=== PATIENT | female | born 1960 | race Caucasian/White ===

== ENCOUNTER 2018-04-15 13:37 | Outpatient (CLI) | payer OTHER | END 2018-04-15 13:45 | disposition home or self-care (01) | LOC: MAMO-SONO 13:37 | DX: Z12.31 Encounter for screening mammogram for malignant neoplasm of breast (principal); N60.11 Diffuse cystic mastopathy of right breast; N60.12 Diffuse cystic mastopathy of left breast ==

== ENCOUNTER 2019-02-05 14:45 | Outpatient (CLI) | payer OTHER ==
[~2019-02-05 14:45] MED LIST: EFFEXOR25 MG; LEXAPRO20 MG; MEDROL4 MG PO; PROTONIX40 MG; SOMA; TYLENOL WITH CODEINE; WELCHOL625 MG; WELLBUTRIN75 MG; ZITHROMAX500 MG; ZYRTEC10 MG PO
== END 2019-02-05 14:48 | disposition home or self-care (01) ==
LOC: RAD 14:45
DX: M54.2 Cervicalgia (principal); M16.11 Unilateral primary osteoarthritis, right hip; M17.11 Unilateral primary osteoarthritis, right knee; M17.12 Unilateral primary osteoarthritis, left knee

== ENCOUNTER 2019-03-24 08:19 | Outpatient (CLI) | payer OTHER | END 2019-03-24 08:27 | disposition home or self-care (01) | LOC: RAD 08:19 → MAMO-SONO 08:45 | DX: J01.10 Acute frontal sinusitis, unspecified (principal); R94.5 Abnormal results of liver function studies ==

== ENCOUNTER 2020-09-08 13:09 | Outpatient (CLI) | payer OTHER | END 2020-09-08 13:13 | disposition home or self-care (01) | LOC: RAD 13:09 | PROVIDERS: ATTEND Physical Medicine & Rehabilitation | DX: M25.521 Pain in right elbow (principal); M77.11 Lateral epicondylitis, right elbow ==

== ENCOUNTER → 2021-04-23 | Outpatient (CLI) | payer OTHER | END | disposition home or self-care (01) | LOC: MAMO-SONO 13:29 | PROVIDERS: ATTEND Family Medicine | DX: M16.11 Unilateral primary osteoarthritis, right hip (principal); M16.2 Bilateral osteoarthritis resulting from hip dysplasia; M17.0 Bilateral primary osteoarthritis of knee ==

== ENCOUNTER 2021-05-04 14:19 | Outpatient (CLI) | payer OTHER | END 2021-05-04 14:26 | disposition home or self-care (01) | LOC: NUCLEAR 14:19 | PROVIDERS: ATTEND Internal Medicine Rheumatology | DX: M81.0 Age-related osteoporosis without current pathological fracture (principal) ==

== ENCOUNTER 2021-05-04 15:08 | Outpatient (CLI) | payer OTHER | END 2021-05-04 15:09 | disposition home or self-care (01) | LOC: LAB 15:08 | PROVIDERS: ATTEND Internal Medicine Rheumatology | DX: M05.79 Rheumatoid arthritis with rheumatoid factor of multiple sites without organ or systems involvement (principal); I25.10 Atherosclerotic heart disease of native coronary artery without angina pectoris ==

== ENCOUNTER 2022-03-14 15:47 | Outpatient (CLI) | payer OTHER | END 2022-03-14 15:57 | disposition home or self-care (01) | LOC: RAD 15:47 | PROVIDERS: ATTEND Physical Medicine & Rehabilitation | DX: M17.11 Unilateral primary osteoarthritis, right knee (principal); M17.12 Unilateral primary osteoarthritis, left knee; S93.402A Sprain of unspecified ligament of left ankle, initial encounter; M54.50 Low back pain, unspecified ==

== ENCOUNTER 2022-05-29 13:34 | Outpatient (CLI) | payer OTHER | END 2022-05-29 13:53 | disposition home or self-care (01) | LOC: RAD 13:34 | PROVIDERS: ATTEND Family Medicine | DX: R05.1 Acute cough (principal) ==

== ENCOUNTER 2022-11-06 13:40 | Outpatient (CLI) | payer OTHER | END 2022-11-06 13:49 | disposition home or self-care (01) | LOC: RAD 13:40 | PROVIDERS: ATTEND Family Medicine | DX: R05.8 Other specified cough (principal); R50.9 Fever, unspecified ==

== ENCOUNTER 2022-12-27 07:48 | Outpatient (CLI) | payer OTHER | END 2022-12-27 08:22 | disposition home or self-care (01) | LOC: SONOGRAMA 07:48 | PROVIDERS: ATTEND Family Medicine | DX: R94.8 Abnormal results of function studies of other organs and systems (principal); R74.02 Elevation of levels of lactic acid dehydrogenase [LDH] ==

== ENCOUNTER 2023-04-18 14:24 | Outpatient (CLI) | payer OTHER | END 2023-04-18 14:31 | disposition home or self-care (01) | LOC: RAD 14:24 | PROVIDERS: ATTEND Physical Medicine & Rehabilitation | DX: M54.2 Cervicalgia (principal); M54.6 Pain in thoracic spine ==

== ENCOUNTER → 2024-02-04 13:38 | Outpatient (CLI) | payer OTHER | END | disposition home or self-care (01) | LOC: NUCLEAR 13:38 | PROVIDERS: ATTEND Family Medicine | DX: M85.80 Other specified disorders of bone density and structure, unspecified site (principal); M81.0 Age-related osteoporosis without current pathological fracture ==

== ENCOUNTER → 2024-06-30 15:54 | Outpatient (CLI) | payer OTHER | END | disposition home or self-care (01) | LOC: RAD 15:54 | PROVIDERS: ATTEND Physical Medicine & Rehabilitation | DX: M25.512 Pain in left shoulder (principal); M25.562 Pain in left knee; M25.522 Pain in left elbow ==

== ENCOUNTER 2024-07-02 10:08 | Outpatient (CLI) | payer OTHER | END 2024-07-02 10:15 | disposition home or self-care (01) | LOC: SONOGRAMA 10:08 | PROVIDERS: ATTEND Physical Medicine & Rehabilitation | DX: M25.512 Pain in left shoulder (principal) ==

== ENCOUNTER 2024-07-22 07:32 | Outpatient (CLI) | payer OTHER | END 2024-07-22 07:39 | disposition home or self-care (01) | LOC: SONOGRAMA 07:32 | PROVIDERS: ATTEND Family Medicine | DX: R94.5 Abnormal results of liver function studies (principal) ==

== ENCOUNTER 2024-11-01 14:03 | Outpatient (CLI) | payer OTHER | END 2024-11-01 14:08 | disposition home or self-care (01) | LOC: RAD 14:03 | PROVIDERS: ATTEND Internal Medicine Rheumatology | DX: M19.041 Primary osteoarthritis, right hand (principal); M19.042 Primary osteoarthritis, left hand; M47.817 Spondylosis without myelopathy or radiculopathy, lumbosacral region ==

== ENCOUNTER 2025-01-31 13:17 | Outpatient (CLI) | payer OTHER | END 2025-01-31 13:24 | disposition home or self-care (01) | LOC: RAD 13:17 | PROVIDERS: ATTEND Physical Medicine & Rehabilitation | DX: M77.31 Calcaneal spur, right foot (principal) ==